=== PATIENT | male | born 1980 | race Caucasian/White ===

== ENCOUNTER 2017-01-10 07:31 | Emergency (ER) | payer OTHER ==
[~2017-01-10] VITALS: Ht 172.7 cm; Wt 88.5 kg
[2017-01-10] MEDS ORDERED: MOBIC7.5 MG PO (07:44)
[2017-01-10] MEDS ORDERED: Orphenadrine C100 MG PO (09:31)
[2017-01-10] MEDS ORDERED: NAPROSYN500 MG PO (09:31)
== END 2017-01-10 09:43 | disposition home or self-care (01) ==
LOC: ED 07:31
DX: S39.012A Strain of muscle, fascia and tendon of lower back, initial encounter (principal); X58.XXXA Exposure to other specified factors, initial encounter; Y93.89 Activity, other specified; Y92.89 Other specified places as the place of occurrence of the external cause; Y99.8 Other external cause status